=== PATIENT | female | born 2000 | race Hispanic/Latino ===

== ENCOUNTER 2020-04-14 13:11 | Emergency (ER) | payer OTHER, SELFPAY ==
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
[2020-04-14 14:26] VITALS: BP 109/92; TEMP 98; O2SAT 98
== END 2020-04-14 14:19 | disposition home or self-care (01) ==
LOC: ER 13:11
DX: M62.830 Muscle spasm of back (principal); G89.11 Acute pain due to trauma; V49.40XA Driver injured in collision with unspecified motor vehicles in traffic accident, initial encounter
CPT/HCPCS: 99282

== ENCOUNTER 2021-03-06 05:07 | Emergency (ER) | payer SELFPAY ==
[2021-03-06 05:31] LABS: Absolute Lymphocytes (CBC) 3.6 K/uL (0.7-4.9); Hematocrit 38.2 % (36.0-45.0); Lymphocytes % 45.9 % (15.3-44.8); MPV 8.9 fL (7.6-11.3); RBC Red Blood Cell Count 4.75 M/uL (3.86-4.86)
[2021-03-06] MEDS ORDERED: NA CHLORIDE 0.9% 2,000 ML ONE (05:33)
[2021-03-06 05:48] LABS: ALT/SGPT 36 U/L (12-78); AST/SGOT 24 U/L (15-37); Albumin 3.7 g/dL (3.4-5.0); Alkaline Phosphatase 93 U/L (45-117); BUN Blood Urea Nitrogen 7 mg/dL (7-18); Bicarbonate 17 mmol/L (21-32); Bilirubin Direct < 0.1 mg/dL (0-0.2); Bilirubin Total 0.2 mg/dL (0.2-1.0); Glucose Level 214 mg/dL (74-106); Potassium 3.6 mmol/L (3.5-5.1); Protein, Total 7.5 g/dL (6.4-8.2); Sodium Level 143 mmol/L (136-145)
[2021-03-06] MEDS ORDERED: NA CHLORIDE 0.9% 100 ML ONE (06:09)
[2021-03-06] MEDS ORDERED: TETANUS & DIPHTHERIA TOX,ADULT 0.5 ML VIAL ONE (06:09)
[2021-03-06 06:12] LABS: Protime INR 1.11
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
--- NOTE | 2021-03-06 06:15 | EDPHYS ---
Physician Documentation [facility] Name: Maryjo Lan Age: 20 yrs Sex: Female : 2000 Arrival Date: 03/06/2021 Time: 05:09 Bed 3 Private MD: ED Physician Harris Sands HPI: 03/06 05:45 This 20 yrs old Female presents to ER via Wheelchair with complaints of mh7 Laceration To Arm. 05:46 Trauma demographics: County: The injury occurred in [place] Location of Injury: The mh7 injury occurred on a street or driveway, Date: March 06, 2021. Mechanism of injury: Penetrating trauma: inflicted by glass, that penetrated penetrated an unknown depth, the object was removed prior to arrival. Associated injuries: The patient sustained right forearm, laceration, 10 cm(s). Onset: The symptoms/episode began/occurred just prior to arrival, today. 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 - Immunization history: Last tetanus immunization: unknown. ROS: 05:59 Constitutional: Negative for fever, chills, and weight loss, Eyes: Negative for injury, mh7 pain, redness, and discharge, ENT: Negative for injury, pain, and discharge, Neck: Negative for injury, pain, and swelling, Cardiovascular: Negative for chest pain, palpitations, and edema, Respiratory: Negative for shortness of breath, cough, wheezing, and pleuritic chest pain, Abdomen/GI: Negative for abdominal pain, nausea, vomiting, diarrhea, and constipation, Back: Negative for injury and pain, : Negative for injury, bleeding, discharge, and swelling, Neuro: Negative for headache, weakness, numbness, tingling, and seizure, Psych: Negative for depression, anxiety, suicide ideation, homicidal ideation, and hallucinations, Allergy/Immunology: Negative for hives, rash, and allergies, Endocrine: Negative for neck swelling, polydipsia, polyuria, polyphagia, and marked weight changes, Hematologic/Lymphatic: Negative for swollen nodes, abnormal bleeding, and unusual bruising. Exam: 05:59 Head/Face: Normocephalic, atraumatic. mh7 05:59 ENT: Nares patent. No nasal discharge, no septal abnormalities noted. Tympanic membranes are normal and external auditory canals are clear. Oropharynx with no redness, swelling, or masses, exudates, or evidence of obstruction, uvula midline. Mucous membranes moist. Neck: Trachea midline, no thyromegaly or masses palpated, and no cervical lymphadenopathy. Supple, full range of motion without nuchal rigidity, or vertebral point tenderness. No Meningismus. Chest/axilla: Normal chest wall appearance and motion. Nontender with no deformity. No lesions are appreciated. 05:59 Respiratory: Lungs have equal breath sounds bilaterally, clear to auscultation and percussion. No rales, rhonchi or wheezes noted. No increased work of breathing, no retractions or nasal flaring. Abdomen/GI: Soft, non-tender, with normal bowel sounds. No distension or tympany. No guarding or rebound. No evidence of tenderness throughout. Back: No spinal tenderness. No costovertebral tenderness. Full range of motion. 05:59 Constitutional: The patient appears alert, awake, obviously ill. 05:59 Eyes: Periorbital structures: appear normal, Pupils: equal, round, and reactive to light and accomodation, Extraocular movements: intact throughout, Conjunctiva: pale, bilaterally. 05:59 Cardiovascular: Rate: tachycardic, Rhythm: regular, Pulses: pulse deficits are appreciated, weak, Heart sounds: normal, normal S1and S2, Edema: is not appreciated, JVD: is not appreciated. 05:59 Musculoskeletal/extremity: Extremities: noted in the right mid forearm, volar aspect: laceration, ROM: intact in all extremities, Pulses: weak, Perfusion: the patient is pale, Perfusion: the extremity is cool, noted to have sluggish capillary refill, Tingling of extremity. numbness, decreased sensation, Compartment Syndrome exam of affected extremity: numbness, tingling, sensation decreased, pale extremity, weak pulse, Joints: All joints appear normal with full range of motion. Tendon exam: postive for complete laceration right forearm, unable to extend fingers of right hand. 05:59 Skin: injury, laceration(s), the wound is approximately 10 cm(s), with a depth of 5 cm(s), of the right mid forearm, volar aspect, that can be described as no foreign body, irregular, jagged, with severe bleeding. 05:59 Neuro: Orientation: is normal, Mentation: is normal, Memory: is normal, Cranial nerves: grossly normal, Cerebellar function: is grossly normal, Motor: moves all fours, unable to extend fingers of right hand, Sensation: numbness, that is moderate, of the right arm, tingling, that is moderate, of the right arm, seizure activity, is not displayed by the patient, Abnormal movements: there are no abnormal movements. 05:59 Psych: Behavior/mood is cooperative, Affect is calm, Oriented to person, place, time, Patient has no thoughts/intents to harm self or others. Judgement / Insight is normal. Memory is normal. Delusions/hallucinations are not present. Vital Signs: 05:17 BP 98 / 79; Pulse 133; Resp 20; Pulse Ox 95% on R/A; Weight 99.79 kg (R); lp1 05:22 BP 105 / 73; Pulse 131; Resp 24; Pulse Ox 94% on R/A; lp1 05:30 BP 114 / 85; Pulse 137; Resp 21; Pulse Ox 100% on 2 lpm NC; lp1 05:40 BP 109 / 69; Pulse 124; Resp 21; Pulse Ox 100% on 2 lpm NC; lp1 05:44 Temp 98.4(O); lp1 05:50 BP 112 / 85; Pulse 118; Resp 22; Pulse Ox 100% on 2 lpm NC; lp1 06:15 BP 117 / 83; Pulse 117; Resp 22; Pulse Ox 100% on 2 lpm NC; lp1 [place] Coma Score: 05:20 Eye Response: spontaneous(4). Verbal Response: oriented(5). Motor Response: obeys jb4 commands(6). Total: 15. 06:00 Eye Response: spontaneous(4). Verbal Response: oriented(5). Motor Response: obeys jb4 commands(6). Total: 15. Trauma Score (Adult): 05:20 Eye Response: spontaneous(1); Verbal Response: oriented(1); Motor Response: obeys jb4 commands(2); Systolic BP: > 89 mm Hg(4); Respiratory Rate: 10 to 29 per min(4); [place] Score: 15; Trauma Score: 12 06:03 Eye Response: spontaneous(1); Verbal Response: oriented(1); Motor Response: obeys lp1 commands(2); Systolic BP: > 89 mm Hg(4); Respiratory Rate: 10 to 29 per min(4); Sera Score: 15; Trauma Score: 12 MDM: 05:59 Differential diagnosis: extremity fracture, Laceration, Vascular Injury, Tendon injury. [facility] Data reviewed: vital signs, nurses notes, lab test result(s), radiologic studies, plain films. Counseling: I had a detailed discussion with the patient and/or guardian regarding: the historical points, exam findings, and any diagnostic results supporting the discharge/admit diagnosis, lab results, radiology results, the need to transfer to another facility, for higher level of care, [facility] does not immediately have the required specialist. Response to treatment: the patient's symptoms have mildly improved after treatment. 06:14 Patient medically screened. [facility] 03/06 05:15 Order name: Basic Metabolic Panel [facility] 03/06 05:15 Order name: CBC with Diff; Complete Time: 05:33 [facility] 03/06 05:15 Order name: Type And Screen [facility] 03/06 05:15 Order name: Protime (+inr) [facility] 03/06 05:15 Order name: Ptt, Activated [facility] 03/06 05:15 Order name: LFT's [facility] 03/06 05:15 Order name: Test, Serum [facility] 03/06 05:15 Order name: ETOH Level [facility] 03/06 05:34 Order name: Acetaminophen [facility] 03/06 05:34 Order name: Salicylate [facility] 03/06 05:35 Order name: Salicylates Level [facility] 03/06 05:36 Order name: PRBC [facility] 03/06 05:15 Order name: Labs collected and sent; Complete Time: 06:05 [facility] 03/06 05:15 Order name: Forearm Right XRAY [facility] 03/06 05:16 Order name: Chest Single View XRAY [facility] 03/06 05:35 Order name: Transfuse; Complete Time: 06:15 [facility] 03/06 05:45 Order name: RBC Leukored Pheresis [facility] 03/06 05:45 Order name: RBC Leukoreduced (Pheresis 2) [facility] 03/06 05:58 Order name: Acetaminophen Level EDMS Administered Medications: 05:14 Drug: NS 0.9% 1000 ml Route: IV; Rate: 1000 ml; Site: left hand; em 05:43 Follow up: IV Status: Completed infusion; IV Intake: 1000ml lp1 05:43 Drug: NS 0.9% 1000 ml Route: IV; Rate: 1000 ml; Site: left hand; lp1 06:02 Follow up: IV Status: Completed infusion; IV Intake: 1000ml lp1 05:50 Drug: Tetanus-Diphtheria Toxoid Adult 0.5 ml {Homeopathic Doctor: [employer]. Exp: jb4 02/05/2023. Lot #: [id number]. } Route: IM; Site: left deltoid; 06:16 Follow up: Response: No adverse reaction lp1 06:03 Drug: Ancef (cefazolin) 1 grams {Note: Verbal order per Dr. Sands.} Route: IVPB; Site: lp1 left hand; 06:15 Follow up: IV Status: Completed infusion; IV Intake: 10ml lp1 Disposition: 03/06/21 06:14 Transfer ordered to [facility]. Diagnosis are Right Forearm Laceration, Penetrating Trauma Right Forearm, with Hemorrhage, Right Upper Extremity Neurovascular Injury, Tendon Injury. - Reason for transfer: Higher level of care. - Accepting physician is Dr. Wells. - Condition is Serious. - Problem is new. - Symptoms have improved. Signatures: Dispatcher [employer] EDSC Sreekanth Prather RN RN Seema Gonzalez RN RN 1 Eddie Mcclure RN RN [facility] Harris Sands MD MD 7 Corrections: (The following items were deleted from the chart) 05:50 05:36 Packed RBC Leukored ordered. EDSC EDMS 05:50 05:36 ABO/RH typing ordered. EDSC EDMS 05:50 05:36 Antibody Screen ordered. EDSC EDMS 05:58 05:35 Acetaminophen Level ordered. EDSC EDMS 06:37 06:14 03/06/2021 06:14 Transfer ordered to [facility]. Diagnosis is Right jb4 Forearm Laceration; Penetrating Trauma Right Forearm, with Hemorrhage; Right Upper Extremity Neurovascular Injury, Tendon Injury. Reason for transfer: Higher level of care. Accepting physician is Dr. Russell. Condition is Serious. Problem is new. Symptoms have improved. mh7
[2021-03-06] MEDS ORDERED: CEFAZOLIN/SWI 1gm 1 GM/10 ML SYR ONE (06:19)
[2021-03-06] MEDS ORDERED: NA CHLORIDE 0.9% 250 ML ONE (06:41)
[2021-03-06 06:48] VITALS: O2SAT 100
[2021-03-06 06:51] VITALS: TEMP 98.4
[2021-03-06 06:54] VITALS: BP 117/83
--- NOTE | 2021-03-06 12:53 | RAD REPORT ---
EXAM DESCRIPTION: RAD - Forearm Right - 03/06/2021 5:40 am CLINICAL HISTORY: The patient is 20 years old and is Female; trauma TECHNIQUE: Frontal and lateral views of the right forearm. COMPARISON: No relevant prior studies available. FINDINGS: Bones/joints: Unremarkable. No acute fracture. No dislocation. Soft tissues: Defect in the soft tissues of the mid ventral forearm. IMPRESSION: No acute fracture or dislocation. Electronically signed by: Greg Red MD 03/06/2021 5:52 AM CDT Due to temporary technical issues with the PACS/Fluency reporting system, reports are being signed by the in house radiologists without review as a courtesy to insure prompt reporting. The interpreting radiologist is fully responsible for the content of the report.
--- NOTE | 2021-03-06 12:55 | RAD REPORT ---
EXAM DESCRIPTION: RAD - Chest Single View - 03/06/2021 5:44 am CLINICAL HISTORY: The patient is 20 years old and is Female; TRAUMA TECHNIQUE: Frontal view of the chest. COMPARISON: No relevant prior studies available. FINDINGS: Lungs: Unremarkable. No consolidation. Pleural space: Unremarkable. No pneumothorax. Heart: Unremarkable. Mediastinum: Unremarkable. Bones/joints: Unremarkable. IMPRESSION: No acute findings in the chest. Electronically signed by: Greg Red MD 03/06/2021 5:50 AM CDT Due to temporary technical issues with the PACS/Fluency reporting system, reports are being signed by the in house radiologists without review as a courtesy to insure prompt reporting. The interpreting radiologist is fully responsible for the content of the report.
--- NOTE | 2021-03-08 16:34 | EKG ---
Test Date: 2021-03-06 Test Time: 05:20:01 Finish Painter: KATALINA MEASUREMENT RESULTS: Intervals: Rate: 139 IA: 126 QRSD: 72 QT: 294 QTc: 447 [place]: P: 52 IA: 126 QRS: 69 T: -5 INTERPRETIVE STATEMENTS: Sinus tachycardia Nonspecific T wave abnormality Abnormal ECG No previous ECG available for comparison Electronically Signed On 03-08-21 16:30:09 CDT by Jose Erazo
== END 2021-03-06 06:37 | disposition short-term general hospital (02) ==
LOC: ER 05:07
DX: S51.811A Laceration without foreign body of right forearm, initial encounter (principal); S56.921A Laceration of unspecified muscles, fascia and tendons at forearm level, right arm, initial encounter; S54.91XA Injury of unspecified nerve at forearm level, right arm, initial encounter; W25.XXXA Contact with sharp glass, initial encounter; F17.290 Nicotine dependence, other tobacco product, uncomplicated; Z23 Encounter for immunization
CPT/HCPCS: 36415; 71045; 80048; 80076; 80320; 80329; 84703; 85025; 85610; 85730; 86850; 86900; 86901; 90471; 90714; 93005; 96361; 96374; 99291; G0390; J0690; J7030; J7050; P9016